=== PATIENT | male | born 1975 | race American Indian/Alaskan Native ===

== ENCOUNTER 2018-02-09 17:29 | Emergency (ER) | payer MEDICAID ==
[2018-02-09 17:30] VITALS: BMI 38.4
[2018-02-09 17:43] VITALS: BP 152/94; PULSE 85; RESP 18; TEMP 98.5; O2SAT 97
--- NOTE | 2018-02-09 18:22 | C.PDOC ---
History Of Present Illness 42 y/o male presents to the ED for substance abuse. Admits that he snorts 20 bags of heroin daily and drinks alcohol. Patient is complaining of some abdominal discomfort. No vomiting. He was able to eat and drink today. Patient reports problems with heroin making him see things, but does not want detox at this time. States he does not want any evaluation for his abdominal pain. Otherwise denies any suicidal or homicidal ideation. Time Seen by Provider: 02/09/18 18:12 Chief Complaint (Nursing): Substance Abuse History Per: Patient History/Exam Limitations: no limitations Onset/Duration Of Symptoms: Hrs Current Symptoms Are (Timing): Still Present Modifying Factor(s): Alcohol, Other (Heroin) Past Medical History Reviewed: Historical Data, Nursing Documentation, Vital Signs Vital Signs: Last Vital Signs Temp 98.5 F 02/09/18 17:35 Pulse 85 02/09/18 17:35 Resp 18 02/09/18 17:35 BP 152/94 H 02/09/18 17:35 Pulse Ox 97 02/09/18 18:26 - Medical History PMH: Depression, Diabetes, HTN, Post Traumatic Stress Disorder Family History: States: Unknown Family Hx - Social History Hx Alcohol Use: Yes Hx Substance Use: Yes - Immunization History Hx Tetanus Toxoid Vaccination: No Hx Influenza Vaccination: No Hx Pneumococcal Vaccination: No Review Of Systems Constitutional: Negative for: Fever Gastrointestinal: Positive for: Abdominal Pain. Negative for: Nausea, Vomiting Psych: Positive for: Other (substance abuse). Negative for: Suicidal ideation, Withdrawal Physical Exam - Physical Exam Appears: Non-toxic, No Acute Distress, Other (Intoxicated, but able to speak) Skin: Normal Color, Warm, Dry Head: Atraumatic, Normacephalic Eye(s): bilateral: Normal Inspection, PERRL, EOMI Oral Mucosa: Moist Neck: Normal ROM, Supple Chest: Symmetrical Cardiovascular: Rhythm Regular, No Murmur Respiratory: Normal Breath Sounds, No Rales, No Rhonchi, No Wheezing Gastrointestinal/Abdominal: Soft, No Tenderness, No Guarding Extremity: Bilateral: Atraumatic, Normal Color And Temperature, Normal ROM Neurological/Psych: Normal Speech, Other (Awake, alert, responsive to verbal stimuli, ambulatory in the ED) Gait: Steady ED Course And Treatment O2 Sat by Pulse Oximetry: 97 (RA) Pulse Ox Interpretation: Normal Medical Decision Making Medical Decision Making: Initial Impression: 42 y/o intoxicated male, refusing detox and eval for abd pain Initial Plan: --PO challenge Patient given food and water in the ED, and is tolerating PO. On examination patient remains afebrile, alert, responsive, with clear speech and a steady gait. Patient is stable for discharge home. Counseled regarding diagnosis and provided with resources for substance abuse. Disposition - Disposition Disposition: HOME/ ROUTINE Disposition Time: 18:30 Condition: STABLE Instructions: Opioid Use Disorder Forms: [employer] (Pashto) - Clinical Impression Clinical Impression: Opiate abuse, continuous - Scribe Statement The provider has reviewed the documentation as recorded by the Prince Vang Provider Attestation: All medical record entries made by the Prince were at my direction and personally dictated by me. I have reviewed the chart and agree that the record accurately reflects my personal performance of the history, physical exam, medical decision making, and the department course for this patient. I have also personally directed, reviewed, and agree with the discharge instructions and disposition.
== END 2018-02-09 18:35 | disposition home or self-care (01) ==
LOC: C.ER 17:29
DX: F11.10 Opioid abuse, uncomplicated (principal); E11.9 Type 2 diabetes mellitus without complications; I10 Essential (primary) hypertension

== ENCOUNTER 2018-10-11 22:38 | Inpatient (IN) | payer SELFPAY ==
[2018-10-11 22:38] VITALS: BMI 38.4
--- NOTE | 2018-10-11 23:10 | C.PDOC ---
History Of Present Illness The patient presents to the ED for psychiatric evaluation. Patient reports depression and questionable suicidal ideation. Patient also admits to alcohol, heroin, cocaine and PCP use today and is requesting detox. He denies homicidal ideation and offers no additional complaints at this time. Time Seen by Provider: 10/11/18 23:10 Chief Complaint (Nursing): Substance Abuse History Per: Patient History/Exam Limitations: no limitations Onset/Duration Of Symptoms: Hrs Current Symptoms Are (Timing): Still Present Suicide/Self Injury Attempted (Context): None Modifying Factor(s): Alcohol, Cocaine, Other (heroin, PCP ) Severity: None Pain Scale Rating Of: 0 Associated Symptoms: Depression, Suicidal Thoughts (questionable ) Involuntary Hold By: None Recent travel outside of the [place]: No Additional History Per: Patient Past Medical History Reviewed: Historical Data, Nursing Documentation, Vital Signs Vital Signs: Last Vital Signs Temp 98.2 F 10/11/18 22:58 Pulse 97 H 10/11/18 22:58 Resp 17 10/11/18 22:58 BP 191/113 H 10/11/18 22:58 Pulse Ox 97 10/11/18 22:58 - Medical History PMH: Depression, Diabetes, HTN, Post Traumatic Stress Disorder Surgical History: No Surg Hx Family History: States: Unknown Family Hx - Social History Hx Alcohol Use: Yes Hx Substance Use: Yes - Immunization History Hx Tetanus Toxoid Vaccination: No Hx Influenza Vaccination: No Hx Pneumococcal Vaccination: No Review Of Systems Constitutional: Negative for: Fever, Chills Cardiovascular: Negative for: Chest Pain, Palpitations Respiratory: Negative for: Cough, Shortness of Breath Gastrointestinal: Negative for: Nausea, Vomiting, Abdominal Pain, Diarrhea Skin: Negative for: Rash, Lesions, Jaundice, Bruising Psych: Positive for: Depression, Suicidal ideation (questionable ). Negative for: Other (homicidal ideation ) Physical Exam - Physical Exam Appears: Non-toxic, No Acute Distress Skin: Warm, Dry Head: Normacephalic Eye(s): bilateral: Normal Inspection Oral Mucosa: Moist Neck: Supple Chest: Symmetrical, No Deformity Respiratory: No Accessory Muscle Use Extremity: Normal ROM Neurological/Psych: Oriented x3 ED Course And Treatment - Laboratory Results Result Diagrams: 10/11/18 23:36 10/11/18 23:36 O2 Sat by Pulse Oximetry: 97 (on RA) Pulse Ox Interpretation: Normal Progress Note: Bloodwork and urinalysis ordered. Disposition Discussed With DrMarilee: Mela Dan Comment: accepted the pt on her service and took over the care at 4:23 AM Doctor Will See Patient In The: Hospital Counseled Patient/Family Regarding: Studies Performed, Diagnosis - Disposition Disposition: HOSPITALIZED Disposition Time: 23:10 Condition: FAIR Forms: [facility] (Uzbek) - POA Present On Arrival: None - Clinical Impression Clinical Impression: Drug dependence, Alcohol abuse, Opiate abuse, continuous - Scribe Statement The provider has reviewed the documentation as recorded by the Scribe (Gilma Santos) Provider Attestation: All medical record entries made by the Scribe were at my direction and personally dictated by me. I have reviewed the chart and agree that the record accurately reflects my personal performance of the history, physical exam, medical decision making, and the department course for this patient. I have also personally directed, reviewed, and agree with the discharge instructions and disposition. Decision To Admit - Pt Status Changed To: Hospital Disposition Of: Inpatient - Admit Certification Admit to Inpatient:: After my assessment, the patient will require hospitalization for at least two midnights. This is because of the severity of symptoms shown, intensity of services needed, and/or the medical risk in this patient being treated as an outpatient. - InPatient: Physician Admission Certification: I certify that this patient requires 2 or more midnights of care for the following reason:: After my assessment, the patient will require hospitalization for at least two midnights. This is because of the severity of symptoms shown, intensity of services needed, and/or the medical risk in this patient being treated as an outpatient - . Bed Request Type: Detox Admitting Physician: Mela Dan Patient Diagnosis: Drug dependence, Alcohol abuse, Opiate abuse, continuous
[2018-10-11 23:39] LABS: BASO # 0.1 K/uL (0.0-0.2); EOS # 0.3 K/uL (0.0-0.7); EOS % 3.1 % (0.0-4.0); HEMOGLOBIN 12.8 g/dL (12.0-18.0); LYMPH # 3.3 K/uL (1.0-4.3); LYMPH % 35.9 % (20.0-40.0); MEAN CELL VOLUME 85.9 fL (80.0-94.0); MEAN CORPUSCULAR HEMOGLOBIN 28.7 pg (27.0-31.0); MEAN CORPUSCULAR HGB CONC 33.4 g/dL (33.0-37.0); MEAN PLATELET VOLUME 6.8 fL (7.2-11.7); MONO # 0.4 K/uL (0.0-0.8); MONO % 3.9 % (0.0-10.0); NEUT # 5.1 K/uL (1.8-7.0); NEUT % 56.1 % (50.0-75.0); RBC 4.46 Mil/uL (4.40-5.90); RED CELL DISTRIBUTION WIDTH 13.3 % (11.5-14.5); WHITE BLOOD COUNT 9.1 K/uL (4.8-10.8)
[2018-10-11 23:43] LABS: URINE BILIRUBIN NEGATIVE (NEGATIVE); URINE BLOOD NEGATIVE (NEGATIVE); URINE CLARITY Clear (Clear); URINE COLOR Yellow (YELLOW); URINE GLUCOSE (UA) NORMAL (Normal); URINE LEUKOCYTE ESTERASE NEG Leu/uL (Negative); URINE PROTEIN 1+ mg/dL (NEGATIVE)
[2018-10-11 23:52] LABS: ALB/GLOB RATIO 1.6 (1.0-2.1); ALT/SGPT 16 U/L (21-72); AST/SGOT 24 U/L (17-59); BLOOD UREA NITROGEN 18 mg/dL (9-20); CALCIUM 8.5 mg/dl (8.6-10.4); GFR NON-AFRICAN AMERICAN > 60
[2018-10-11 23:56] LABS: BARBITURATES, UR NEGATIVE (NEGATIVE); BENZODIAZEPINES, UR NEGATIVE (NEGATIVE)
[2018-10-12 01:11] LABS: OPIATES, UR POSITIVE (NEGATIVE); PHENCYCLIDINE, UR POSITIVE (NEGATIVE)
--- NOTE | 2018-10-12 05:19 | PCM.BM ---
<Daren Maldonado - Last Filed: 10/12/18 05:16> Treatment Plan Problems - Problems identified on initial assessmt Denial Date Initiated: 10/12/18 Time Initiated: 06:00 Assessment reference: NA Status: Active Defensive Coping Date Initiated: 10/12/18 Time Initiated: 06:00 Assessment reference: NA Status: Active Hopelessness Date Initiated: 10/12/18 Assessment reference: NA Status: Active Treatment assets and liabiliti Patient Assests: cooperative, ADL independent, negotiates basic needs, cognitively intact Patient Liabilities: substance abuse - Milieu Protocol Maintain good personal hygiene: daily Encourage regular showers, daily Remind patient to perform daily oral care, daily Assist patient to perform ADL's Maintain personal safety: every shift Educate patient to report safety concerns to staff, every shift Monitor environment for contraband/sharps Medication safety: Monitor for expected outcome, potential side effects: every shift, Assess barriers to learning: every shift, Assess readiness for medication education: every shift <Margo Garcia - Last Filed: 10/13/18 13:09> Treatment Plan Problems - Problems identified on initial assessmt Denial Date Initiated: 10/12/18 Time Initiated: 06:00 Assessment reference: NA Status: Active Defensive Coping Date Initiated: 10/12/18 Time Initiated: 06:00 Assessment reference: NA Status: Active Hopelessness Date Initiated: 10/12/18 Assessment reference: NA Status: Active Family Contact Family involvement: No known Family/SO - Goals for Treatment Patient goals for treatment: Complete detox and apply for long-term adult rehab program. Discharge/Continuing Care - Education Needs Education Needs: Patient Medication, Patient Diagnosis/Disease Process, Patient Coping Skills, Patient Anger Management skills, Patient Placement options, Patient Community resources - Discharge Discharge Criteria: Free of agitation, Normal sleep pattern, No longer exh ibiting s/s of withdrawal, Reduction of target symptoms Discharge to:: Substance Abuse Rehab - Treatment Team Participation Patient/Family/SO Statement: 10/13/18 13:10 "[facility] go [facility] rehab [facility] Discussed with Family/SO: No Was Patient/Family/SO present at Treatment Team Meeting: Yes <Vijay Trejo - Last Filed: 10/15/18 21:07> - Diagnosis (1) Opiate abuse, continuous Status: Acute Interventions: 10/15/18 21:07 * Assess 7x/week regarding severity of withdrawal * Educate regarding risks, benefits, side effects and alternatives of medications * Use Motivational Interviewing for abstinence * Use CBT for relapse prevention * Medication management for withdrawal symptoms * Encourage medication assisted treatment *
--- NOTE | 2018-10-12 11:25 | PCM.PSYCH ---
Initial Psychiatric Evaluation - Initial Psychiatric Evaluation Type of Admission: Voluntary Legal Status: Capacity Chief Complaint (in patient's own words): "Tired" History of Present Illness and Precipitating Events: The patient is seen, chart reviewed and case discussed. He is a very poor historian and looks overly sedated and possibly drugged. This 42-year-old -[place] male, single, no child and unemployed He claims he uses up to 100 backs IV and he has been using heroin 6-7 years. He was in detox and rehabilitation 3 times each and has history of OD. He also uses 1 pint of alcohol, half tablets Xanax, cocaine and PCP. He has history of blackouts and significant withdrawal symptoms. He reports feeling depressed and yesterday he was suicidal. However today he says he is okay. He also complains of anxiety and irritability. Past psych history: Denies any treatment Medical history: Denies Family psych history: Denies Current Medications: Active Medications Generic Name Dose Route Start Last Admin Trade Name Freq PRN Reason Stop Dose Admin Clonidine HCl 0.1 mg 10/12/18 05:06 10/12/18 05:41 Catapres PO 0.1 mg Q6 PRN Administration Symptoms of alcohol withdrawl Dicyclomine HCl 10 mg 10/12/18 05:05 Bentyl PO Q6 PRN Muscle spasm Hydroxyzine HCl 25 mg 10/12/18 05:05 Atarax PO Q6 PRN Anxiety Ibuprofen 600 mg 10/12/18 05:03 Motrin Tab PO Q6 PRN Pain, moderate (4-7) Ondansetron HCl 4 mg 10/12/18 05:07 Zofran Tab PO Q6 PRN Nausea/Vomiting Past Psychiatric History - Past Psychiatric History Pertinent Medical Hx (Current Medical&Sleep Prob, Allergies): Allergies Allergy/AdvReac Type Severity Reaction Status Date / Time No Known Allergies Allergy Verified 10/11/18 23:06 No Known Home Med 11/06/16 Famotidine [Pepcid] 20 mg PO BID #20 tab 10/08/17 Ibuprofen [Motrin Tab] 600 mg PO Q8 #30 tab 10/08/17 chlordiazePOXIDE [Chlordiazepoxide HCl] 25 mg PO BID 10/08/17 metFORMIN [glucOPHAGE] 500 mg PO BID 10/08/17 Review of Systems - Psychiatric Psychiatric: Abnormal Sleep Pattern, Anhedonia, Anxiety, Change in Appetite, Depression, Difficulty Concentrating, Irritability. absent: Hallucinations, Homicidal Ideation, Suicidal Ideation Mental Status Examination - Personal Presentation Personal Presentation: Looks stated age - Affect Affect: Blunted - Motor Activity Motor Activity: Other (easily restless) - Reliability in Providing Information Reliability in Providing Information: Fair - Speech Speech: Other (slowed, slurred) - Mood Mood: Depressed, Anxious - Formal Thought Process Formal Thought Process: No Impairment - Cognitive Functions Orientation: Person, Place, Situation, Time Sensorium: Drowsy Attention/Concentration: Easily distracted Abstract Thinking: Lyman Estimate of Intelligence: Below average Judgement: Intact, as evidence by: Insight regarding need for hospitalization Memory: Recent intact, as evidence by: Ability to recall events of the day, Remote impaired as evidenced by: Inability to recall sig life events - Risk Risk: Withdrawal, Diminished functioning - Strength & Assets Inventory Strength & Assets Inventory: Cooperative - Limitations Limitations: Living alone DSM 5 DX - DSM 5 DSM 5 Diagnosis: Opioid withdrawal Opioid use disorder, severe Cocaine use disorder, severe PCP use disorder, severe Alcohol withdrawal Alcohol use disorder, severe Personality disorder, unspecified Depressive disorder, unspecified - Recommended/Plan of Treatment Treatment Recommendations and Plan of Treatment: Taper withmethadone when he is withdrawing more Gabapentin for augmentation if needed As needed medications All risks, benefits and alternatives of the meds discussed, and the pt agreed and understood. Attend groups and activities Supportive therapy and psychoeducation AL for abstinence CBT for relapse prevention Encourage MAT Refer to rehab or IOP, and self-help groups Teach healthy lifestyle methods, i.e. diet, exercise, meditation Smoking cessation with AL Nicotine patch if needed 34 min Projected ELOS: 4-5 days Prognosis: good w treatment Discharge Plan and Discharge Criteria: Refer to rehab - Smoking Cessation Smoking Cessation Initiated: Yes
[2018-10-12] MEDS ORDERED: Aluminum Hydroxide/Magnesium Hydroxide Susp (30 mL) PO PRN (17:40)
--- NOTE | 2018-10-13 01:21 | PCM.BM ---
Treatment Plan Problems - Problems identified on initial assessmt Denial Date Initiated: 10/12/18 Time Initiated: 06:00 Assessment reference: NA Status: Active Defensive Coping Date Initiated: 10/12/18 Time Initiated: 06:00 Assessment reference: NA Status: Active Abnormal vital signs Date Initiated: 10/12/18 Assessment reference: NA Status: Active Treatment assets and liabiliti Patient Assests: cooperative, ADL independent, negotiates basic needs, cognitively intact Patient Liabilities: substance abuse - Milieu Protocol Maintain good personal hygiene: daily Encourage regular showers, daily Remind patient to perform daily oral care, daily Assist patient to perform ADL's Maintain personal safety: every shift Educate patient to report safety concerns to staff, every shift Monitor environment for contraband/sharps Medication safety: Monitor for expected outcome, potential side effects: every shift, Assess barriers to learning: every shift, Assess readiness for medication education: every shift
--- NOTE | 2018-10-13 13:00 | PCM.PYCHPN ---
Psychiatric Progress Note - Psychiatric Progress Note Patient seen today, length of contact: 16 minutes Patient Chief Complaint: "I feel sick" Problems Identified/Issues Discussed: The pt is seen, chart reviewed, case discussed with staff. The pt is compliant with medications and reports no side-effects. Symptoms are improving but needs more time to stabilize. He was again very irate this morning Pt attends groups and activities. Support given, psycho-education provided. After care discussed. He wants to go to [facility] Medication Change: Yes (Detox changes daily) Medical Record Reviewed: Yes Mental Status Examination - Cognitive Function Orientation: Person, Place, Situation, Time Memory: Intact Attention: Poor Concentration: Poor Association: WNL Fund of Knowledge: WNL - Mood Mood: Depressed, Anxious, Other (Angry) - Affect Affect: Other (Intense) - Speech Speech: Loud - Formal Thought Process Formal Thought Process: No Impairment - Suicidal Ideation Suicidal Ideation: No - Homicidal Ideation Homicidal Ideation: No Goal/Treatment Plan - Goal/Treatment Plan Need for Continued Stay: Discharge may exacerbated symptoms, Severe functional impairment Progress Toward Problem(s) and Goals/Treatment Plan: Taper with methadone Gabapentin for augmentation if needed As needed medications All risks, benefits and alternatives of the meds discussed, and the pt agreed and understood. Attend groups and activities Supportive therapy and psychoeducation SD for abstinence CBT for relapse prevention Encourage MAT Refer to rehab or IOP, and self-help groups Teach healthy lifestyle methods, i.e. diet, exercise, meditation Smoking cessation with SD Nicotine patch if needed
[2018-10-13] MEDS: Multiple Vitamins Tab PO SCH (13:22)
[2018-10-14] MEDS: Multiple Vitamins Tab PO SCH (10:52)
--- NOTE | 2018-10-14 12:00 | PCM.PYCHPN ---
Psychiatric Progress Note - Psychiatric Progress Note Patient seen today, length of contact: 22 min Patient Chief Complaint: "I am not doing well" Problems Identified/Issues Discussed: The pt is seen again, chart reviewed, and case is discussed with the team. The pt denies any side-effects from meds. Attends activities and groups, brief individual therapy provided However, he is also VERY confrontational, irate easily, comes to people's faces and uses profanity. He also gets paranoid, blames people of lying to him. Finally he is obsessed with fod and anything about it irritaes him too much Security was called 2-3 times already to talk with him. Team also spoke to him twice. He apologizes but does the same thing again. He may be d/c'ed administratively. Medication Change: Yes (Detox changes daily) Medical Record Reviewed: Yes Mental Status Examination - Cognitive Function Orientation: Person, Place, Situation, Time Memory: Intact Attention: Poor Concentration: Poor Association: WNL Fund of Knowledge: WNL - Mood Mood: Depressed, Anxious, Other (Angry) - Affect Affect: Other (Intense) - Speech Speech: Loud - Formal Thought Process Formal Thought Process: No Impairment - Suicidal Ideation Suicidal Ideation: No - Homicidal Ideation Homicidal Ideation: No Goal/Treatment Plan - Goal/Treatment Plan Need for Continued Stay: Discharge may exacerbated symptoms, Severe functional impairment Progress Toward Problem(s) and Goals/Treatment Plan: Taper with methadone Gabapentin for augmentation if needed As needed medications All risks, benefits and alternatives of the meds discussed, and the pt agreed and understood. Attend groups and activities Supportive therapy and psychoeducation AL for abstinence CBT for relapse prevention Encourage MAT Refer to rehab or IOP, and self-help groups Teach healthy lifestyle methods, i.e. diet, exercise, meditation Smoking cessation with AL Nicotine patch if needed Estimated Date of D/C: 10/15/18
[2018-10-15 06:07] VITALS: BP 106/63; PULSE 80; RESP 18; TEMP 98; O2SAT 97
[2018-10-15] MEDS: Multiple Vitamins Tab PO SCH (08:45)
--- NOTE | 2018-10-15 09:03 | PCM.PYCHDC ---
Mental Status Examination - Mental Status Examination Orientation: Person Discharge Summary - Discharge Note Consultations:: List each consultation separately and include: 1. Reason for request. 2. Findings. 3. Follow-up Summary of Hospital Course include:: 1. Description of specific treatment plan utilized for patients during their course of treatmen. 2. Summarize the time- course for resolution of acute symptoms and/or regressed behaviors. 3. Describe issues identified and worked on during hospitalization. 4. Describe medication utilized. 5. Describe medical problems identified and treated. 6. Reassessment of suicide risk Summary of Hospital Course: The patient is seen, chart reviewed and case discussed. He is a very poor historian and looks overly sedated and possibly drugged. This 42-year-old -[place] male, single, no child and unemployed He claims he uses up to 100 backs IV and he has been using heroin 6-7 years. He was in detox and rehabilitation 3 times each and has history of OD. He also uses 1 pint of alcohol, half tablets Xanax, cocaine and PCP. He has history of blackouts and significant withdrawal symptoms. He reports feeling depressed and yesterday he was suicidal. However today he says he is okay. He also complains of anxiety and irritability. Past psych history: Denies any treatment Medical history: Denies Family psych history: Denies Refused last methadone. Will "call" for pharmacy. Security called many times. - Final Diagnosis (DSM 5) Condition upon Discharge: FAIR Disposition: HOME/ ROUTINE Follow-up Treatment Plan: Taper with methadone Gabapentin for augmentation if needed As needed medications All risks, benefits and alternatives of the meds discussed, and the pt agreed and understood. Attend groups and activities Supportive therapy and psychoeducation [place] for abstinence CBT for relapse prevention Encourage MAT Refer to rehab or IOP, and self-help groups Teach healthy lifestyle methods, i.e. diet, exercise, meditation Smoking cessation with [place] Nicotine patch if needed
== END 2018-10-15 08:51 | disposition home or self-care (01) | DRG 881 ==
LOC: C.ER 22:38 → C.7D 10-12 04:21
PROVIDERS: ADMIT Psychiatry & Neurology Psychiatry; ATTEND Psychiatry & Neurology Psychiatry
PROC: GZHZZZZ Group Psychotherapy (ICD-10-PCS; principal; 2018-10-12)
PROC: GZ56ZZZ Individual Psychotherapy, Supportive (ICD-10-PCS; 2018-10-12)
DX: F32.9 Major depressive disorder, single episode, unspecified (principal); F11.23 Opioid dependence with withdrawal; F10.230 Alcohol dependence with withdrawal, uncomplicated; E11.9 Type 2 diabetes mellitus without complications; F60.9 Personality disorder, unspecified; I10 Essential (primary) hypertension; F43.10 Post-traumatic stress disorder, unspecified; F14.10 Cocaine abuse, uncomplicated; Y90.2 Blood alcohol level of 40-59 mg/100 ml; F16.10 Hallucinogen abuse, uncomplicated

== ENCOUNTER 2018-12-14 18:57 | Emergency (ER) | payer SELFPAY ==
[2018-12-14 18:57] VITALS: BMI 38.4
[2018-12-14] MEDS ORDERED: Labetalol 25mg/5ml Syringe IVP STA (19:59)
[2018-12-14] MEDS ORDERED: Labetalol 5mg/ml (4ml) ONE (20:12)
--- NOTE | 2018-12-14 20:12 | C.PDOC ---
History Of Present Illness 42 year old male presents to the ED requesting detox for heroin and cocaine abuse. Patient reports his last use was today, he snorts both substances. Patient also c/o chest pain, SOB that started yesterday. Patient states he broke out in a sweat with some nausea but no vomiting. Upon arrival patient's blood pressure was elevated 197/132, but patient denies headache, weakness, numbness, slurred speech. Patient denies SI/HI, hallucinations. Time Seen by Provider: 12/14/18 19:51 Chief Complaint (Nursing): Substance Abuse History Per: Patient History/Exam Limitations: intoxication Onset/Duration Of Symptoms: Days Current Symptoms Are (Timing): Still Present Modifying Factor(s): Narcotics, Cocaine Associated Symptoms: denies: Depression, Suicidal Thoughts, Suicidal Plan Recent travel outside of the [place]: No Additional History Per: Patient Past Medical History Reviewed: Historical Data, Nursing Documentation, Vital Signs Vital Signs: Last Vital Signs Temp 98.1 F 12/14/18 19:32 Pulse 81 12/14/18 19:32 Resp 16 12/14/18 19:32 BP 197/132 H 12/14/18 19:32 Pulse Ox 96 12/14/18 19:32 - Medical History PMH: Depression, Diabetes, HTN, Post Traumatic Stress Disorder Denies: Hepatitis, HIV, Seizures, Sexually Transmitted Disease Surgical History: No Surg Hx - [facility] GROUP PSYCHOTHERAPY (10/12/18) INDIVIDUAL PSYCHOTHERAPY, SUPPORTIVE (10/12/18) Family History: States: Unknown Family Hx - Social History Hx Alcohol Use: Yes Hx Substance Use: Yes - Immunization History Hx Tetanus Toxoid Vaccination: No Hx Influenza Vaccination: No Hx Pneumococcal Vaccination: No Review Of Systems Constitutional: Positive for: Sweats. Negative for: Fever, Chills Eyes: Negative for: Vision Change Cardiovascular: Positive for: Chest Pain. Negative for: Palpitations Respiratory: Positive for: Shortness of Breath. Negative for: Cough Gastrointestinal: Positive for: Nausea. Negative for: Vomiting, Abdominal Pain Skin: Negative for: Rash Neurological: Negative for: Weakness, Numbness, Headache, Dizziness Psych: Negative for: Depression, Suicidal ideation Physical Exam - Physical Exam Appears: Non-toxic, No Acute Distress Skin: Normal Color, Warm, Dry Head: Atraumatic, Normacephalic Eye(s): bilateral: Normal Inspection Oral Mucosa: Moist Neck: Normal ROM, Supple Chest: Symmetrical Cardiovascular: Rhythm Regular Respiratory: Normal Breath Sounds, No Rales, No Rhonchi, No Wheezing Gastrointestinal/Abdominal: Soft, No Tenderness, No Guarding, No Rebound Extremity: Normal ROM, No Tenderness, No Swelling Neurological/Psych: Oriented x3, Normal Speech, Normal Cognition Gait: Steady ED Course And Treatment - Laboratory Results Result Diagrams: 12/14/18 20:11 12/14/18 20:11 Lab Interpretation: No Acute Changes (UDS + opiates, PCP, cocaine, marijuana) ECG: Interpreted By Me ECG Rhythm: Sinus Rhythm, ST/T Changes (with T wave inversions II, III, AVF, V4- 6) ECG Interpretation: Abnormal O2 Sat by Pulse Oximetry: 96 (ON RA) Pulse Ox Interpretation: Normal - Radiology CXR: Interpreted by Me CXR Interpretation: Yes: No Acute Disease Reevaluation Time: 22:56 Reassessment Condition: Improved (BP and heart rate decreased. Patient is more comfortable. Advised of unavailability of detox beds at this time. Seen by [facility] worker and given info about our waitlist and additional possible detox resourcees.) Medical Decision Making Medical Decision Making: Plan: * EKG * CXR * Labs * UA * Trandate 20 mg IVP Disposition Counseled Patient/Family Regarding: Studies Performed, Diagnosis, Need For Followup - Disposition Referrals: Alcoholics Anonymous [Outside] [facility] [Outside] Disposition: HOME/ ROUTINE Disposition Time: 22:58 Condition: IMPROVED Instructions: Polysubstance Abuse Forms: [facility] (Malawian) - Clinical Impression Clinical Impression: Substance abuse, Chest pain - Scribe Statement The provider has reviewed the documentation as recorded by the Scribe Jatinder Jarrett All medical record entries made by the Scribe were at my direction and personally dictated by me. I have reviewed the chart and agree that the record accurately reflects my personal performance of the history, physical exam, medical decision making, and the department course for this patient. I have also personally directed, reviewed, and agree with the discharge instructions and disposition.
[2018-12-14 20:14] LABS: BASO # 0.1 K/uL (0.0-0.2); BASO % 1.3 % (0.0-2.0); EOS # 0.3 K/uL (0.0-0.7); EOS % 3.3 % (0.0-4.0); HEMOGLOBIN 14.3 g/dL (12.0-18.0); LYMPH # 2.7 K/uL (1.0-4.3); MEAN CORPUSCULAR HEMOGLOBIN 28.5 pg (27.0-31.0); MEAN CORPUSCULAR HGB CONC 33.2 g/dL (33.0-37.0); MEAN PLATELET VOLUME 7.2 fL (7.2-11.7); MONO # 0.4 K/uL (0.0-0.8); MONO % 4.9 % (0.0-10.0); NEUT # 4.4 K/uL (1.8-7.0); NEUT % 56.5 % (50.0-75.0); NRBC % 0.1 % (0.0-2.0); RED CELL DISTRIBUTION WIDTH 13.3 % (11.5-14.5); WHITE BLOOD COUNT 7.8 K/uL (4.8-10.8)
[2018-12-14 20:30] LABS: ALB/GLOB RATIO 1.4 (1.0-2.1); ALBUMIN 4.3 g/dL (3.5-5.0); ALT/SGPT 16 U/L (21-72); AST/SGOT 26 U/L (17-59); BLOOD UREA NITROGEN 14 mg/dL (9-20); CALCIUM 9.1 mg/dl (8.6-10.4); GFR NON-AFRICAN AMERICAN > 60
[2018-12-14 20:44] LABS: SQUAMOUS EPITHIAL < 1 /hpf (0-5); URINE BILIRUBIN NEGATIVE (NEGATIVE); URINE BLOOD NEGATIVE (NEGATIVE); URINE CLARITY Hazy (Clear); URINE COLOR Yellow (YELLOW); URINE GLUCOSE (UA) NORMAL (Normal); URINE LEUKOCYTE ESTERASE NEG Leu/uL (Negative); URINE PROTEIN 1+ mg/dL (NEGATIVE)
[2018-12-14 20:55] LABS: BARBITURATES, UR NEGATIVE (NEGATIVE); BENZODIAZEPINES, UR NEGATIVE (NEGATIVE)
[2018-12-14 20:58] LABS: OPIATES, UR POSITIVE (NEGATIVE); PHENCYCLIDINE, UR POSITIVE (NEGATIVE)
[2018-12-14] MEDS ORDERED: Sodium Chloride 0.9% 1,000 ML IV ONE (22:30)
[2018-12-15] VITALS: BP 185/94; PULSE 62; RESP 16; TEMP 98; O2SAT 99
--- NOTE | 2018-12-15 09:41 | RAD ---
Date of service: 12/14/2018 PROCEDURE: CHEST RADIOGRAPH, 1 VIEW HISTORY: chest pain COMPARISON: None available. FINDINGS: LUNGS: The lungs are well inflated. No focal consolidation. There is an apparent nodular opacity overlying the left upper lobe. PLEURA: No pneumothorax or pleural effusion. CARDIOVASCULAR: The heart is normal in size. No aortic atherosclerotic calcifications present. OSSEOUS STRUCTURES: Within normal limits for the patient's age. VISUALIZED UPPER ABDOMEN: Normal. OTHER FINDINGS: None. IMPRESSION: Apparent nodular opacity in the left upper lobe which could represent costochondritis however parenchymal nodule cannot be excluded. Correlation with CT scan of the chest without intravenous contrast is recommended. The final report is tagged to the PA review folder.
--- NOTE | 2018-12-15 09:47 | RAD ---
Date of service: 12/14/2018 HISTORY: Question of left upper lobe nodule COMPARISON: Plain radiograph performed earlier the same day. TECHNIQUE: Chest PA and lateral FINDINGS: LINES AND TUBES: None. LUNG AND PLEURA: The lungs are well inflated. There is an apparent faint 6 mm nodule in the right upper lobe. There is an asymmetric opacity overlying the anterior left 1st rib. No pleural effusion or pneumothorax. HEART AND MEDIASTINUM: The heart is not enlarged. No aortic atherosclerotic calcifications present. The hilar and mediastinal contours are within normal limits. SKELETAL STRUCTURES: The bony structures are within normal limits for the patient's age. VISUALIZED UPPER ABDOMEN: Normal. OTHER FINDINGS: None. IMPRESSION: No acute findings. Apparent faint 6 mm nodule in the right upper lobe. Asymmetric opacity overlying the anterior left 1st rib is nonspecific and could be related to costochondritis however parenchymal nodule cannot be excluded. Correlation with CT scan of the thorax without intravenous contrast is recommended for further evaluation of these suspected findings. The final report is tagged to the PA review folder.
--- NOTE | 2018-12-15 12:45 | CARD ---
APPROVED REPORT Date of service: 12/14/2018 EKG Measurement Heart [id number] <Conclusion> Normal sinus rhythm Left axis deviation ST & T wave abnormality, consider inferolateral ischemia Abnormal ECG
== END 2018-12-15 00:01 | disposition home or self-care (01) ==
LOC: C.ER 18:57
DX: F19.10 Other psychoactive substance abuse, uncomplicated (principal); R07.9 Chest pain, unspecified; I10 Essential (primary) hypertension
CPT/HCPCS: 71045; 71046; 80053; 81001; 82948; 84484; 85025; 93005; 96361; 96374; 99285; G0480; J7030